=== PATIENT | male | born 1980 | race African-American/Black ===

== ENCOUNTER 2017-12-09 09:10 | Emergency (ER) | payer SELFPAY ==
[2017-12-09] MEDS ORDERED: HYDROcodone/Acetaminophen 5/325 mg Tablet ONE (09:52)
[2017-12-09] MEDS ORDERED: Naproxen 500 MG TAB ONE (09:52)
== END 2017-12-09 10:22 | disposition home or self-care (01) ==
LOC: ERS 09:10
DX: K08.89 Other specified disorders of teeth and supporting structures (principal); J45.909 Unspecified asthma, uncomplicated
CPT/HCPCS: 99283

== ENCOUNTER 2020-08-23 21:05 | Emergency (ER) | payer SELFPAY ==
[2020-08-23] MEDS ORDERED: Acetaminophen 325 MG TAB ONE (22:22)
== END 2020-08-23 22:28 ==
LOC: ERS 21:05
DX: R07.89 Other chest pain (principal); J45.909 Unspecified asthma, uncomplicated
CPT/HCPCS: 71045; 93005

== ENCOUNTER 2025-01-12 02:52 | Emergency (ER) | payer SELFPAY ==
[2025-01-12] MEDS ORDERED: Benzonatate 100 MG CAP ONE (04:10)
[2025-01-12] MEDS ORDERED: Ketorolac Tromethamine 30 MG (1 mL) VIAL ONE (04:10)
[2025-01-12] MEDS ORDERED: Dexamethasone 10 MG/ML VIAL ONE (04:10)
== END 2025-01-12 05:21 | disposition home or self-care (01) ==
LOC: ERS 02:52
DX: J20.9 Acute bronchitis, unspecified (principal)
CPT/HCPCS: 87081; 87428; 87430; 96372; J1100; J1885